=== PATIENT | male | born 1950 | race Caucasian/White ===

== ENCOUNTER → 2016-12-09 | Outpatient (REF) | payer BC ==
[2016-12-09 18:32] LABS: MEAN CORPUSCULAR HEMOGLOBIN 29.8 pg (27.0-33.0); MEAN CORPUSCULAR HGB CONC 33.5 g/dl (32.0-36.5); MEAN CORPUSCULAR VOLUME 88.7 fl (80.0-96.0); RED CELL DISTRIBUTION WIDTH 13.2 % (11.5-14.5); WHITE BLOOD COUNT 8.2 K/mm3 (4.0-10.0)
[2016-12-09 20:15] LABS: ALBUMIN 3.6 GM/DL (3.2-5.2); ALKALINE PHOSPHATASE 72 U/L (45-117); ALT/SGPT 26 U/L (12-78); ANION GAP 7 MEQ/L (8-16); AST/SGOT 16 U/L (15-37); BILIRUBIN,TOTAL 0.4 MG/DL (0.2-1.0); BLOOD UREA NITROGEN 17 MG/DL (7-18); CALCIUM LEVEL 8.4 MG/DL (8.8-10.2); CARBON DIOXIDE LEVEL 28 MEQ/L (21-32); CHLORIDE LEVEL 105 MEQ/L (98-107); CREATININE FOR GFR 1.13 MG/DL (0.70-1.30); GLOMERULAR FILTRATION RATE > 60.0 (>49); GLUCOSE, FASTING 84 MG/DL (80-110); POTASSIUM SERUM 4.4 MEQ/L (3.5-5.1); SODIUM LEVEL 140 MEQ/L (136-145); TOTAL PROTEIN 7.6 GM/DL (6.4-8.2); URIC ACID 5.6 MG/DL (3.5-7.2)
== END ==
LOC: M SFHCCLAY 11:29
PROVIDERS: ATTEND Nurse Practitioner Family
DX: M79.675 Pain in left toe(s) (principal)

== ENCOUNTER 2017-02-06 16:04 | Emergency (ER) | payer BC ==
[2017-02-06] MEDS ORDERED: NS 1,000 ML IV SCH (16:08)
[2017-02-06] MEDS ORDERED: LISI-538 (16:13)
[2017-02-06] MEDS ORDERED: ASPI81TA85 PO (16:14)
[2017-02-06] MEDS ORDERED: TENECTEPLASE 50 MG KIT (TNKase)(J3101) IV ONE (16:15)
[2017-02-06] MEDS ORDERED: NITROGLYCERIN 2% OINT 1 GM *U/D* PKT TOP ONE (16:15)
[2017-02-06] MEDS ORDERED: HEPARIN DRIP 25,000 UNITS in APPROPRIATE DILUENT 1 EA IV SCH (16:15)
[2017-02-06] MEDS ORDERED: MORPHINE 2 MG/ML 1ML SYRINGE IV PRN (16:15)
[2017-02-06] MEDS ORDERED: CLOPIDOGREL 300 MG TAB (PLAVIX) PO ONE (16:15)
[2017-02-06 16:30] VITALS: BP 120/74
[2017-02-06] MEDS ORDERED: HEPARIN SOD (PORCINE) 5000 UNITS/ML VIAL IV ONE (16:30)
[2017-02-06 16:32] LABS: BASO # 0.1 K/mm3 (0.0-0.2); EOS # 0.2 K/mm3 (0.0-0.50); EOS % 2.2 % (0.0-3.0); LARGE UNSTAINED CELL # 0.3 K/mm3 (0.0-0.4); LARGE UNSTAINED CELL % 2.5 % (0.0-4.0); LYMPH # 3.4 K/mm3 (1.5-4.5); LYMPH % 28.8 % (24.0-44.0); MEAN CORPUSCULAR HEMOGLOBIN 30.2 pg (27.0-33.0); MEAN CORPUSCULAR HGB CONC 34.7 g/dl (32.0-36.5); MEAN CORPUSCULAR VOLUME 87.2 fl (80.0-96.0); MONO # 0.7 K/mm3 (0.0-0.8); MONO % 6.1 % (0.0-5.0); NEUTROPHILS # 6.4 K/mm3 (1.8-7.7); NEUTROPHILS % 59.4 % (36.0-66.0); PLATELET COUNT, AUTOMATED 239 k/mm3 (150-450); RED CELL DISTRIBUTION WIDTH 13.8 % (11.5-14.5); WHITE BLOOD COUNT 10.8 K/mm3 (4.0-10.0)
[2017-02-06 16:53] LABS: INR 1.09
[2017-02-06 17:10] LABS: CALCIUM LEVEL 9.7 MG/DL (8.8-10.2); CREATININE FOR GFR 1.54 MG/DL (0.70-1.30); GLOMERULAR FILTRATION RATE 48.2 (>49); POTASSIUM SERUM 4.5 MEQ/L (3.5-5.1)
--- NOTE | 2017-02-06 21:03 | ECGEPIP ---
Stationary ECG Study [facility] - ED Test Date: 2017-02-06 Pat Name: YUE CALDERON Department: Room: - Gender: M Lokie Engineer: thierry : 1950 Requested By: Figueroa Ng Order Number: [id number] Reading MD: Geni Shelton Measurements Intervals [place] Rate: 103 P: PA: 0 QRS: 61 QRSD: 110 T: 86 QT: 331 QTc: 434 Interpretive Statements ATRIAL FIBRILLATION WITH RAPID VENTRICULAR RESPONSE INFERIOR MYOCARDIAL INFARCTION, ACUTE DC ANTEROLATERAL INJURY, ACUTE DC NO PRIOR FOR COMPARISON CLINICAL CORRELATION Electronically Signed On 02-06-2017 21:02:41 EDT by Geni Shelton
--- NOTE | 2017-02-09 07:28 | REP ---
Clinical: Chest pain . Comparison: None . Findings: The mediastinum and cardiac silhouette are stable and within normal limits for portable technique. The lung davis are clear without acute consolidation, effusion, or pneumothorax. Skeletal structures are intact. Impression: No acute cardiopulmonary process appreciated. Signed by Philip Clark MD 02/06/2017 04:22 P
== END 2017-02-06 16:50 | disposition short-term general hospital (02) ==
LOC: EDBD 16:04 → M ED 16:04 → EDSEX 16:04 → M ED 16:50
DX: I21.3 ST elevation (STEMI) myocardial infarction of unspecified site (principal); I10 Essential (primary) hypertension
CPT/HCPCS: 71010; 80048; 82550; 82553; 85025; 85610; 85730; 93005; 93041; 94760; 96374; 96375; 96376; 99285; J3101

== ENCOUNTER → 2017-04-09 | Outpatient (REF) | payer BC ==
[~2017-04-09] MED LIST: ASPI81TA85 PO; LISI-538
== END ==
LOC: M SFHCCLAY 07:40
PROVIDERS: ATTEND Nurse Practitioner Family
DX: E78.5 Hyperlipidemia, unspecified (principal)

== ENCOUNTER → 2017-05-27 | Outpatient (REF) | payer BC | LOC: M SFHCLERA 09:16 | PROVIDERS: ATTEND Dermatology | DX: L82.1 Other seborrheic keratosis (principal) ==

== ENCOUNTER → 2017-08-11 | Outpatient (REF) | payer BC ==
[2017-08-11 12:19] LABS: CHOLESTEROL LEVEL 202 MG/DL (<200); CHOLESTEROL RISK RATIO 4.122 (<5); HDL CHOLESTEROL 49 MG/DL (>40); LDL CHOLESTEROL 108.2 MG/DL (<100); NON-HDL-C 153 MG/DL; TRIGLYCERIDES LEVEL 224 MG/DL (<150)
== END ==
LOC: M SFHCCLAY 09:06
DX: E78.5 Hyperlipidemia, unspecified (principal)

== ENCOUNTER → 2018-05-05 | Outpatient (REF) | payer BC ==
[2018-05-05 12:11] LABS: HEMOGLOBIN 15.8 g/dl (13.5-17.5); MEAN CORPUSCULAR HEMOGLOBIN 29.5 pg (27.0-33.0); MEAN CORPUSCULAR HGB CONC 32.9 g/dl (32.0-36.5); MEAN CORPUSCULAR VOLUME 89.6 fl (80.0-96.0); PLATELET COUNT, AUTOMATED 219 10^3/uL (150-450); RED BLOOD COUNT 5.36 10^6/uL (4.30-6.10); RED CELL DISTRIBUTION WIDTH 13.3 % (11.5-14.5); WHITE BLOOD COUNT 6.8 10^3/uL (4.0-10.0)
[2018-05-05 13:03] LABS: ALBUMIN 3.6 GM/DL (3.2-5.2); ALBUMIN/GLOBULIN RATIO 0.97 (1.00-1.93); ALKALINE PHOSPHATASE 76 U/L (45-117); ALT/SGPT 29 U/L (12-78); ANION GAP 10 MEQ/L (8-16); AST/SGOT 22 U/L (7-37); BILIRUBIN,TOTAL 0.8 MG/DL (0.2-1.0); BLOOD UREA NITROGEN 14 MG/DL (7-18); CALCIUM LEVEL 8.2 MG/DL (8.8-10.2); CARBON DIOXIDE LEVEL 24 MEQ/L (21-32); CHLORIDE LEVEL 106 MEQ/L (98-107); CHOLESTEROL LEVEL 170 MG/DL (<200); CHOLESTEROL RISK RATIO 3.863 (<5); CREATININE FOR GFR 1.16 MG/DL (0.70-1.30); GLOMERULAR FILTRATION RATE > 60.0 (>49); GLUCOSE, FASTING 119 MG/DL (70-100); HDL CHOLESTEROL 44 MG/DL (>40); LDL CHOLESTEROL 79 MG/DL (<100); NON-HDL-C 126 MG/DL; POTASSIUM SERUM 4.8 MEQ/L (3.5-5.1); SODIUM LEVEL 140 MEQ/L (136-145); TOTAL PROTEIN 7.3 GM/DL (6.4-8.2); TRIGLYCERIDES LEVEL 235 MG/DL (<150)
== END ==
LOC: M SFHCCLAY 07:17
DX: I10 Essential (primary) hypertension (principal); E78.5 Hyperlipidemia, unspecified
CPT/HCPCS: 80053

== ENCOUNTER → 2018-07-14 | Outpatient (REF) | payer BC ==
[2018-07-14 12:01] LABS: ALBUMIN 3.6 GM/DL (3.2-5.2); ANION GAP 6 MEQ/L (8-16); BLOOD UREA NITROGEN 14 MG/DL (7-18); CALCIUM LEVEL 8.7 MG/DL (8.8-10.2); CARBON DIOXIDE LEVEL 29 MEQ/L (21-32); CHLORIDE LEVEL 103 MEQ/L (98-107); CREATININE FOR GFR 1.18 MG/DL (0.70-1.30); GLOMERULAR FILTRATION RATE > 60.0 (>49); GLUCOSE, FASTING 111 MG/DL (70-100); PHOSPHORUS LEVEL 1.5 MG/DL (2.5-4.9); POTASSIUM SERUM 4.6 MEQ/L (3.5-5.1); SODIUM LEVEL 138 MEQ/L (136-145)
== END ==
LOC: M LABDRAWC 11:22
DX: I10 Essential (primary) hypertension (principal)
CPT/HCPCS: 80069

== ENCOUNTER → 2018-08-11 | Outpatient (REF) | payer BC ==
[2018-08-11 12:06] LABS: CALCIUM LEVEL 9.1 MG/DL (8.8-10.2); CHOLESTEROL RISK RATIO 3.936 (<5)
[2018-08-11 12:21] LABS: HEMOGLOBIN A1c 5.8 %
== END ==
LOC: M SFHCCLAY 08:21
PROVIDERS: ATTEND Nurse Practitioner Family
DX: R73.9 Hyperglycemia, unspecified (principal); I10 Essential (primary) hypertension; E78.5 Hyperlipidemia, unspecified

== ENCOUNTER → 2018-12-30 | Outpatient (REF) | payer BC ==
[2018-12-30 12:02] LABS: CHOLESTEROL RISK RATIO 3.931 (<5)
== END ==
LOC: M SFHCCLAY 07:44
PROVIDERS: ATTEND Nurse Practitioner Family
DX: E78.5 Hyperlipidemia, unspecified (principal)

== ENCOUNTER → 2019-06-24 | Outpatient (REF) | payer BC ==
[2019-06-24 12:11] LABS: HEMATOCRIT 47.2 % (42.0-52.0); MEAN CORPUSCULAR HGB CONC 31.8 g/dl (32.0-36.5); MEAN CORPUSCULAR VOLUME 91.1 fl (80.0-96.0); PLATELET COUNT, AUTOMATED 227 10^3/uL (150-450); RED BLOOD COUNT 5.18 10^6/uL (4.30-6.10); WHITE BLOOD COUNT 6.8 10^3/uL (4.0-10.0)
[2019-06-24 12:19] LABS: ALBUMIN 3.6 GM/DL (3.2-5.2); ALT/SGPT 26 U/L (12-78); BILIRUBIN,TOTAL 0.9 MG/DL (0.2-1.0); BLOOD UREA NITROGEN 18 MG/DL (7-18); CALCIUM LEVEL 9.2 MG/DL (8.8-10.2); CARBON DIOXIDE LEVEL 31 MEQ/L (21-32); CHLORIDE LEVEL 104 MEQ/L (98-107); CHOLESTEROL LEVEL 157 MG/DL (<200); CHOLESTEROL RISK RATIO 3.651 (<5); CREATININE FOR GFR 1.15 MG/DL (0.70-1.30); GLOMERULAR FILTRATION RATE > 60.0 (>42); GLUCOSE, FASTING 113 MG/DL (70-100); HDL CHOLESTEROL 43 MG/DL (>40); LDL CHOLESTEROL 81 MG/DL (<100); NON-HDL-C 114 MG/DL; POTASSIUM SERUM 4.9 MEQ/L (3.5-5.1); SODIUM LEVEL 138 MEQ/L (136-145); TOTAL PROTEIN 7.2 GM/DL (6.4-8.2); TRIGLYCERIDES LEVEL 167 MG/DL (<150)
== END ==
LOC: M SFHCCLAY 08:29
PROVIDERS: ATTEND Nurse Practitioner Family
DX: I10 Essential (primary) hypertension (principal); E78.5 Hyperlipidemia, unspecified

== ENCOUNTER → 2020-03-01 | Outpatient (REF) | payer BC ==
[~2020-03-01] MED LIST changes: -ASPI81TA85 PO; +ASPI81TA86 PO
[2020-04-08 07:49] LABS: CHOLESTEROL RISK RATIO 4.204 (<5); HEMOGLOBIN A1c 6.1 %; TOTAL 25(OH) VITAMIN D 37.8 NG/ML (30.0-100.0)
== END ==
LOC: M SFHCCLAY 09:23
PROVIDERS: ATTEND Nurse Practitioner Family
DX: E78.5 Hyperlipidemia, unspecified (principal); Z13.21 Encounter for screening for nutritional disorder

== ENCOUNTER 2020-08-23 12:16 | Emergency (ER) | payer BC, MEDICARE ==
[~2020-08-23] VITALS: Ht 182.9 cm; Wt 104.5 kg
[~2020-08-23 12:16] MED LIST changes: -LISI-538; +LISI20TA33
--- OUTSIDE RECORDS SUMMARY | 2020-08-23 12:25 | CCD ---
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 AUTM [phone] Problems Active Problems Provider Date Paroxysmal atrial fibrillation Fabiano Newby MD Onset: Electrocardiogram abnormal Fabiano Newby MD Onset: 2016 Old myocardial infarction Fabiano Newby MD Onset: 017 Patient post percutaneous transluminal coronary angioplasty Fabiano Newby MD Onset: 03/13/2017 Essential hypertension Fabiano Newby MD Onset: 03/13/2017 Single coronary vessel disease Fabiano Newby MD Onset: Pure hypercholesterolemia Fabiano Newby MD Onset: 017 Disturbance in sleep behavior Fabiano Newby MD Onset: 10/2016 Body mass index 30+ - obesity Fabiano Newby MD Onset: Dietary management surveillance FRANCISCO Dixon Onset: 05/31/2018 Obesity FRANCISCO Dixon Onset: 06/16/2019 Social History Type Date Description Comments Sex Unknown ETOH Use Consumes 2 beers per day Tobacco Use Start: Unknown Patient has never smoked Smoking Status Reviewed: 06/16/19 Patient has never smoked Exercise Type/Frequency Walks sporadically Exercise Type/Frequency Does housework twice a w wiyot Exercise Limitations None Allergies, Adverse Reactions, Alerts Description No Known Drug Allergies Medications Active Medications SIG Qnty Indications Ordering Provide r Date Lisinopril 5mg Tablets Take One Tablet By Mouth Every Day 90tabs Juventino Lemons MD 06/08/2018 Atorvastatin Calcium 80mg Tablets Take One Tablet By Mouth AT Bedtime 90tabs Fabiano Newby MD Preservision Areds Capsules 1 by mouth twice a day Unknown 03/12/2017 Aspirin Adult Low Dose 81mg Tablet s DR 1 by mouth every day 90tabs Fabiano Newby MD 03/12/2017 Metoprolol Tartrate 25mg Tablets Take One Tablet By Mouth Twice A Day 180tabs Juventino Lemons MD 03/12/2017 Nitroglycerin 0.4mg Tablets Sub 1 tab sl every 5 min times 3 doses as needed chest disc 30tabs Tesha Newby MD 03/03/2017 Immunizations Description No Information Available Vital Signs Date Vital Result Comment 06/16/2019 11:36am Weight 235.00 lb Height 72 inches 6'0" BMI (Body Mass Index) 31.9 kg/m2 Heart Rate 80 /min BP Systolic Sitting 112 mmHg large cuff, Ra BP Diastolic Sitting 78 mmHg large cuff, Ra 05/31/2018 1:06pm Weight 239.00 lb Height 72 inches 6'0" BMI (Body Mass Index) 32.4 kg/m2 BP Systolic Sitting 136 mmHg large adult cuff/Ra BP Diastolic Sitting 68 mmHg large adult cuff/Ra Results Test Acquired Date Facility Test Result H/L Range Note Lipid Profile/Cardiac Risk Pro 03/01/2020 [facility] - not interfaced (315)- - Triglycerides 201 High <150 Cholesterol 185 <200 HDL 44 >40.0 LDL Cholesterol 101 Chol/HDL Ratio 4.204 <5 Hemoglobin A1c 03/01/2020 [facility] - not interfaced (315)- - Hemoglobin A1c 6.1 Procedures Description No Information Available Medical Devices Description No Information Available Encounters Description No Information Available Assessments Description No Information Available Plan of Treatment Future Appointment(s):* 06/15/2020 10:15 am - FRANCISCO Dixon at Main Office 06/16/2019 - FRANCISCO Dixon* I25.10 Atherosclerotic heart disease of [place] coronary artery with* Recommendations:* Please call the office with any exertional chest pain or shortness of breath. * I48.0 Paroxysmal atrial fibrillation* Recommendations:* Please call the office if you have any sustained episodes of tachycardia (heart rate above 110 bpm at rest) or palpitations. * I10 Essential (primary) hypertension* Recommendations:* No medication changes were made today. * R94.31 Abnormal electrocardiogram [ECG] [EKG]* Recommendations:* No significant change. No further workup required. * E66.8 Other obesity * Z71.3 Dietary counseling and surveillance* Recommendations:* Recommend adopting a more whole foods, plant-based diet in addition to moderate exercise a minimum of 30 minutes 6 days a week. In order to optimize cardiovascular health please be conscious of processed foods, alcohol (no more than two dr inks a day for men and one drink a day for women), salt (<2000 mg/d), oils, saturated fat/animal products, and highly refined carbohydrates such as breads, pastas, and sweets. * All * Follow up:* Follow up in 12 months. Functional Status Functional Condition Comment Date Status Independent with all ADL's Activ e Mental Status Description No Information Available Referrals Description No Information Available
--- OUTSIDE RECORDS SUMMARY | 2020-08-23 12:25 | CCD ---
Author Author [facility] Organization [facility] Address Unknown Phone Unavailable Support Name Relationship Address Phone RETIRED Next Of Kin Unknown Unavailable TENNILLE LYNN Next Of Kin [address] [place] [address] IRINAWILFREDOA Next Of Kin [address] [place] [address] YUE CALDERON SR Next Of Kin [address] [place] [address] [phone] WILLIAM AREVALOINDA ECON [address] [place] [address] Unavailable Re-disclosure Warning The records that you are about to access may contain information from federally-assisted alcohol or drug abuse programs. If such information is present, then the following federally mandated warning applies: This information has been disclosed to you from records protected by federal confidentiality rules (42 CFR part 2). The federal rules prohibit you from making any further disclosure of this information unless further disclosure is expressly permitted by the written consent of the person to whom it pertains or as otherwise permitted by 42 CFR part 2. A general authorization for the release of medical or other information is NOT sufficient for this purpose. The Federal rules restrict any use of the information to criminally investigate or prosecute any alcohol or drug abuse patient.The records that you are about to access may contain highly sensitive health information, the redisclosure of which is protected by Article 27-F of the [facility] Public Health law. If you continue you may have access to information: Regarding HIV / AIDS; Provided by facilities licensed or operated by the [facility] Office of Mental Health; or Provided by the [facility] Office for People With Developmental Disabilities. If such information is present, then the following [facility] mandated warning applies: This information has been disclosed to you from confidential records which are protected by state law. State law prohibits you from making any further disclosure of this information without the specific written consent of the person to whom it pertains, or as otherwise permitted by law. Any unauthorized further disclosure in violation of state law may result in a fine or fci sentence or both. A general authorization for the release of medical or other information is NOT sufficient authorization for further disc losure. Family History Family Member Name Family Member Gender Family Member Status Date o f Status Description Data Source(s) Unknown Male Problem [facility] ([facility]) Encounters Encounter Providers Location Date Indications Data Source(s ) Outpatient [id number] [facility] [id number] 05/16/2020 12:00:00 AM EDT eCW1 ([facility]) Unknown [address] [place] [id number] 05/10/2020 12:00:00 AM EDT eCW1 ([facility]) [address] [address] 02/21/2020 12:00:00 AM EDT eCW1 ([facility]) [address] [phone] 08/10/2019 12:00:00 AM EST eCW1 ([facility]) [address] [address] 07/08/2019 12:00:00 AM EST eCW1 ([facility]) Immunizations Vaccine Date Status Description Data Source(s) pneumococcal polysaccharide PPV23 05/16/2020 03:19:00 PM EDT comple rosita eCW1 ([facility]) influenza, recombinant, quadrIvalent,injectable, prese rvative free 05/16/2020 03:17:00 PM EDT completed eCW1 ([facility]) Medications Medication Brand Name Start Date Product Form Dose Route Admi nistrative Instructions Pharmacy Instructions Status Indications Reaction Description Data Source(s) 5 mg 05/21/2020 12:00:00 AM EDT tablet 90 TAKE ONE TABLET BY MOUTH EVERY DAY TAKE ONE TABLET BY MOUTH EVERY DAY SOLD: 05/23/2020 [facility] 80 mg 05/21/2020 12:00:00 AM EDT tablet 90 TAKE ONE TABLET BY MOUTH AT BEDTIME TAKE ONE TABLET BY MOUTH AT BEDTIME SOLD: 08/20/2020 [facility] 80 mg 05/21/2020 12:00:00 AM EDT tablet 90 TAKE ONE TABLET BY MOUTH AT BEDTIME TAKE ONE TABLET BY MOUTH AT BEDTIME SOLD: 05/23/2020 [facility] 5 mg 05/21/2020 12:00:00 AM EDT tablet 90 TAKE ONE TABLET BY MOUTH EVERY DAY TAKE ONE TABLET BY MOUTH EVERY DAY SOLD: 08/20/2020 [facility] 25 mg 02/20/2020 12:00:00 AM EDT tablet 180 TAKE ONE TABLET BY MOUTH TWICE A DAY TAKE ONE TABLET BY MOUTH TWICE A DAY SOLD: 02/23/2020 [facility] 25 mg 02/20/2020 12:00:00 AM EDT tablet 180 TAKE ONE TABLET BY MOUTH TWICE A DAY TAKE ONE TABLET BY MOUTH TWICE A DAY SOLD: 05/23/2020 [facility] 25 mg 02/20/2020 12:00:00 AM EDT tablet 180 TAKE ONE TABLET BY MOUTH TWICE A DAY TAKE ONE TABLET BY MOUTH TWICE A DAY SOLD: 08/20/2020 [facility] 81 mg 01/03/2020 12:00:00 AM EDT tablet,delayed release (DR/EC) 30 TAKE ONE TABLET BY MOUTH EVERY DAY TAKE ONE TABLET BY MOUTH EVERY DAY SOLD: 03/16/2020 [facility] 81 mg 01/03/2020 12:00:00 AM EDT tablet,delayed release (DR/EC) 30 TAKE ONE TABLET BY MOUTH EVERY DAY TAKE ONE TABLET BY MOUTH EVERY DAY SOLD: 07/16/2020 [facility] 81 mg 01/03/2020 12:00:00 AM EDT tablet,delayed release (DR/EC) 30 TAKE ONE TABLET BY MOUTH EVERY DAY TAKE ONE TABLET BY MOUTH EVERY DAY SOLD: 08/14/2020 [facility] 81 mg 01/03/2020 12:00:00 AM EDT tablet,delayed release (DR/EC) 30 TAKE ONE TABLET BY MOUTH EVERY DAY TAKE ONE TABLET BY MOUTH EVERY DAY SOLD: 06/14/2020 [facility] 81 mg 01/03/2020 12:00:00 AM EDT tablet,delayed release (DR/EC) 30 TAKE ONE TABLET BY MOUTH EVERY DAY TAKE ONE TABLET BY MOUTH EVERY DAY SOLD: 04/16/2020 [facility] 81 mg 01/03/2020 12:00:00 AM EDT tablet,delayed release (DR/EC) 30 TAKE ONE TABLET BY MOUTH EVERY DAY TAKE ONE TABLET BY MOUTH EVERY DAY SOLD: 02/07/2020 [facility] 81 mg 01/03/2020 12:00:00 AM EDT tablet,delayed release (DR/EC) 30 TAKE ONE TABLET BY MOUTH EVERY DAY TAKE ONE TABLET BY MOUTH EVERY DAY SOLD: 05/16/2020 [facility] 81 mg 01/03/2020 12:00:00 AM EDT tablet,delayed release (DR/EC) 30 TAKE ONE TABLET BY MOUTH EVERY DAY TAKE ONE TABLET BY MOUTH EVERY DAY SOLD: 01/05/2020 [facility] Cephalexin 500 MG Oral Capsule Cephalexin 500 MG 08/10/2019 12:00:00 AM EST active 1 capsule eCW1 ([facility]) Cephalexin 500 MG Oral Capsule Cephalexin 500 MG 08/10/2019 12:00:0 0 AM EST 1.0 {capsule} active Cephalexin 500 MG eCW1 ([facility]) 500 mg 08/10/2019 12:00:00 AM EST capsule 40 TAKE ONE CAPSULE BY MOUTH FOUR TIMES A DAY FOR 10 DAYS TAKE ONE CAPSULE BY MOUTH FOUR TIMES A DAY FOR 10 DAYS SOLD: 08/11/2019 [facility] Mupirocin 0.02 MG/MG Topical Ointment Mupirocin 2 % Mupiroci n 2 % 08/10/2019 12:00:00 AM EST 1.0 {application} active Mupirocin 2 % eCW1 ([facility]) Mupirocin 0.02 MG/MG Topical Ointment Mupirocin 2 % Mupiroci n 2 % 08/10/2019 12:00:00 AM EST 1.0 {application} active Mupirocin 2 % eCW1 ([facility]) 2 % 08/10/2019 12:00:00 AM EST ointment 22 APPLY THREE TIMES A DAY TO LEFT THUMB FOR 10 DAYS APPLY THREE TIMES A DAY TO LEFT THUMB FOR 10 DAYS SOLD : 08/11/2019 [facility] Mupirocin 0.02 MG/MG Topical Ointment Mupirocin 2 % Mupiroci n 2 % 08/10/2019 12:00:00 AM EST active 1 applic ation eCW1 ([facility]) Cephalexin 500 MG Oral Capsule Cephalexin 500 MG 08/10/2019 12:00:0 0 AM EST 1.0 {capsule} active Cephalexin 500 MG eCW1 ([facility]) 80 mg 05/30/2019 12:00:00 AM EDT tablet 90 TAKE ONE TABLET BY MOUTH AT BEDTIME TAKE ONE TABLET BY MOUTH AT BEDTIME SOLD: 08/29/2019 [facility] 80 mg 05/30/2019 12:00:00 AM EDT tablet 90 TAKE ONE TABLET BY MOUTH AT BEDTIME TAKE ONE TABLET BY MOUTH AT BEDTIME SOLD: 02/23/2020 [facility] 80 mg 05/30/2019 12:00:00 AM EDT tablet 90 TAKE ONE TABLET BY MOUTH AT BEDTIME TAKE ONE TABLET BY MOUTH AT BEDTIME SOLD: 11/24/2019 [facility] 5 mg 05/24/2019 12:00:00 AM EDT tablet 90 TAKE ONE TABLET BY MOUTH EVERY DAY TAKE ONE TABLET BY MOUTH EVERY DAY SOLD: 11/24/2019 [facility] 5 mg 05/24/2019 12:00:00 AM EDT tablet 90 TAKE ONE TABLET BY MOUTH EVERY DAY TAKE ONE TABLET BY MOUTH EVERY DAY SOLD: 02/23/2020 [facility] 5 mg 05/24/2019 12:00:00 AM EDT tablet 90 TAKE ONE TABLET BY MOUTH EVERY DAY TAKE ONE TABLET BY MOUTH EVERY DAY SOLD: 08/23/2019 [facility] 25 mg 02/28/2019 12:00:00 AM EDT tablet 180 TAKE ONE TABLET BY MOUTH TWICE A DAY TAKE ONE TABLET BY MOUTH TWICE A DAY SOLD: 08/29/2019 [facility] 25 mg 02/28/2019 12:00:00 AM EDT tablet 180 TAKE ONE TABLET BY MOUTH TWICE A DAY TAKE ONE TABLET BY MOUTH TWICE A DAY SOLD: 11/24/2019 [facility] 81 mg 01/26/2019 12:00:00 AM EDT tablet,delayed release (DR/EC) 30 TAKE ONE TABLET BY MOUTH EVERY DAY TAKE ONE TABLET BY MOUTH EVERY DAY SOLD: 08/12/2019 [facility] 81 mg 01/26/2019 12:00:00 AM EDT tablet,delayed release (DR/EC) 30 TAKE ONE TABLET BY MOUTH EVERY DAY TAKE ONE TABLET BY MOUTH EVERY DAY SOLD: 09/12/2019 [facility] 81 mg 01/26/2019 12:00:00 AM EDT tablet,delayed release (DR/EC) 30 TAKE ONE TABLET BY MOUTH EVERY DAY TAKE ONE TABLET BY MOUTH EVERY DAY SOLD: 11/07/2019 [facility] 81 mg 01/26/2019 12:00:00 AM EDT tablet,delayed release (DR/EC) 30 TAKE ONE TABLET BY MOUTH EVERY DAY TAKE ONE TABLET BY MOUTH EVERY DAY SOLD: 12/08/2019 [facility] 81 mg 01/26/2019 12:00:00 AM EDT tablet,delayed release (DR/EC) 30 TAKE ONE TABLET BY MOUTH EVERY DAY TAKE ONE TABLET BY MOUTH EVERY DAY SOLD: 07/15/2019 [facility] 81 mg 01/26/2019 12:00:00 AM EDT tablet,delayed release (DR/EC) 30 TAKE ONE TABLET BY MOUTH EVERY DAY TAKE ONE TABLET BY MOUTH EVERY DAY SOLD: 10/10/2019 [facility] Insurance Providers Payer name Policy type / Coverage type Policy ID Covered republican ID Covered republican's relationship to michael Policy Michael Plan Information [facility] [employer]OY[employer] PROGRAM [id number] SP [id number] [facility]-Medicare Part B [id number] ANSI-Commercial [id number] ANSI-Commercial [id number] ANS-Medicare Part B [id number] ANSI-Commercial [id number] ANS-Medicare Part B [id number] BCBS Federal Commercial [id number] Self [id number] BCBS Federal Commercial [id number] Self [id number] ANSI-Medicare Part B [id number] ANSI-Commercial [id number] BCBS Federal Commercial [id number] Self [id number] [employer] FEDERAL [id number] SP [id number] BC[employer] Federal Commercial [id number] Self [id number] MEDICARE [id number] Judi [id number] A [employer]BS [id number] Judi [id number] [employer]BS Federal Commercial [id number] Self [id number] [employer]BS Federal Commercial [id number] Self [id number] [employer]BS Federal Commercial [id number] Self [id number] [employer] FEDERAL [id number] SP [id number] [employer] [id number] Judi [id number] Surgeries/Procedures Procedure Description Date Indications Data Source(s) Immunization: Flublok Quadrivalent (18 years & older) 0.5mL IM (Influenza) 05/16/2020 12:00:00 AM EDT eCW1 ([facility]) Results ID Date Data Source [id number] 03/01/2020 01:05:00 PM EDT [facility] ([facility]) Name Value Range Interpretation Code Description Data Alice rce(s) Supporting Document(s) Hemoglobin A1c/Hemoglobin.total in Blood 6.1 [facility] ([facility]) ID Date Data Source [id number] 03/01/2020 01:05:00 PM EDT [facility] Name Value Range Interpretation Code Description Data Alice rce(s) Supporting Document(s) Cholesterol 185 [facility] ([facility]) Triglycerides 201 [facility] ([facility]) HDL 44 [facility] Chol/HDL Ratio 4.204 [facility] ([facility]) Cholesterol in LDL [Mass/volume] in Serum or Plasma by calculation 10 1 [facility] ([facility]) Procedure Social History Code Duration Value Status Description Data Source(s ) Smoking 06/15/2020 12:00:00 AM EST Patient has never smoked co mpleted Patient has never smoked [facility] ([facility]) Smoking 08/10/2019 12:00:00 AM EST Never Smoker completed Never S moker eCW1 ([facility]) Smoking 08/10/2019 12:00:00 AM EST Never Smoker completed Never S moker eCW1 ([facility]) Vital Signs ID Date Data Source UNK Name Value Range Interpretation Code Description Data Source(s) Diastolic blood pressure--sitting 78 mm[Hg] 78 mm[Hg] [facility] ([facility]) large cuff, Ra Systolic blood pressure--sitting 122 mm[Hg] 122 mm[Hg] [facility] ([facility]) large cuff, Ra Heart rate 69 /min 69 /min [facility] ([facility]) Body mass index (BMI) [Ratio] 31.9 kg/m2 31.9 k g/m2 [facility] ([facility]) Body height 72 [in_i] 72 [in_i] [facility] ([facility]) 6'0" Body weight 235.00 [lb_av] 235.00 [lb_av] MEDEN T ([facility]) Diastolic blood pressure 79 mm[Hg] 79 mm[Hg] eCW1 ([facility]) Systolic blood pressure 128 mm[Hg] 128 mm[Hg] e CW1 ([facility]) Body temperature 97.8 [degF] 97.8 [degF] eCW1 ( [facility]) Respiratory rate 20 /min 20 /min eCW1 ([facility]) Heart rate 73 /min 73 /min eCW1 ([facility]) Body mass index (BMI) [Ratio] 31.13 kg/m2 31.13 kg/m2 eCW1 ([facility]) Body height [in_us] eCW1 ([facility]) Body weight Measured 236 [lb_av] 236 [lb_av] eC W1 ([facility]) Patient Treatment Plan of Care Planned Activity Planned Date Details Description Data Source (s) Mupirocin 0.02 MG/MG Topical Ointment 08/10/2019 12:00:00 AM EST eCW1 ([facility]) Cephalexin 500 MG Oral Capsule 08/10/2019 12:00:00 AM EST eCW1 ([facility]) Mupirocin 0.02 MG/MG Topical Ointment 08/10/2019 12:00:00 AM EST eCW1 ([facility]) Cephalexin 500 MG Oral Capsule 08/10/2019 12:00:00 AM EST eCW1 ([facility]) Cephalexin 500 MG Oral Capsule 08/10/2019 12:00:00 AM EST eCW1 ([facility]) Mupirocin 0.02 MG/MG Topical Ointment 08/10/2019 12:00:00 AM EST eCW1 ([facility])
--- OUTSIDE RECORDS SUMMARY | 2020-08-23 12:25 | CCD ---
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 Name Role Phone Hua Bruce Unavailable PROBLEMS Type Condition ICD9-CM Code QGW19-AC Code Onset Dates Condition S tatus SNOMED Code Notes Problem Cough R05 Active 52199680 Problem Acute sinusitis, unspecified J01.90 Active 158 07606 Problem Other and unspecified hyperlipidemia E78.5 Act erica 66980781 Problem Unspecified essential hypertension I10 Activ e [id number] ALLERGIES No Known Allergies ENCOUNTERS from 1950 to 2020-05-24 Encounter Location Date Provider Diagnosis [address] [address] May Hua Bruce Encounter for immunization Z23 IMMUNIZATIONS Vaccine Route Administration Date Status Influenza (18 yrs & older) Flublok IM Intramuscular May 16, 2020 Administered Influenza (18 yrs & older) Flublok Unknown May 07, 2018 Administered Influenza (High Dose 65 & up) IM Intramuscular Aug 20, 2017 A dministered Pneumococcal Adult 0.5mL (Pneumovax 23) IM Intramuscular May 16, 2020 Administered SOCIAL HISTORY Tobacco Use: Social History Observation Description Date Details (start date - stop date) Never Smoker Sex Assigned At : Social History Observation Description Sex Assigned At Unknown Education: Question Answer Notes Level of Education: Finished High School Audit Question Answer Notes Total Score: 0 Interpretation: Alcohol Education Protestant: Question Answer Notes Protestant 08 Jain Sexual Hx: Question Answer Notes Had sex in the last 12 months (vaginal, oral, or anal)? Yes Have you ever had an STD? No Prevention Strategies discussed: Other with Women only Use protection? No Drug and Alcohol Question Answer Notes Total Score: 0 Interpretation: No problems reported Alcohol Screening: Question Answer Notes Did you have a drink containing alcohol in the past year? Ye s Points 6 Interpretation Positive How often did you have six or more drinks on one occas ion in the past year? Monthly (2 points) How many drinks did you have on a typica l day when you were drinking in the past year? 3 or 4 (1 point) How often did you have a drink containing alcohol in t he past year? Two to three times per week (3 points) BMI Care Goal Follow-Up Question Answer Notes Above Normal BMI Follow-Up Dietary management educatio n, guidance, and counseling Tobacco Use: Question Answer Notes Are you a: never smoker REASON FOR REFERRAL No Information VITAL SIGNS No information MEDICATIONS Medication SIG (Take, Route, Frequency, Duration) Start Date En d Date Status Cephalexin 500 MG 1 capsule Orally four times daily for 10 day(s ) Aug, Active Nitroglycerin 0.4 MG Sublingual Active Metoprolol Tartrate 25 MG 1 tablet with food Orally Twice a day Active Centrum Silver Adult 50+ - Orally A ctive PreserVision AREDS - Orally bid Active Aspirin 81 MG 1 tablet Orally Once a day for 90 Active Atorvastatin Calcium 80 MG 1 tablet Orally Once a day Active Mupirocin 2 % 1 application LEFT THUMB Three times a d ay for 10 day(s) Aug, Active Ibuprofen 800 MG 1 tablet with food or milk Orally Three times a day December, Active Lisinopril 5 MG 1 tablet Orally Once a day Active PROCEDURES Procedure Date Ordered Result Body Site Immunization: Flublok Quadrivalent (18 years & older) 0.5mL IM (Influenza) 2020-05-16 N/A RESULTS No Results REASON FOR VISIT flu inj and pneumonia MEDICAL (GENERAL) HISTORY Type Description Date Medical History Elevated blood pressure Medical History Hyperlipidemia Surgical History hydrocele repair Surgical History cardiac stent-Ptca/stenting RCA 02/07/17 Hospitalization History [place] [facility] 02/06/17 Goals Section No Information Health Concerns No Information MEDICAL EQUIPMENT No Information MENTAL STATUS No Information FUNCTIONAL STATUS No Information ASSESSMENTS Encounter Date Diagnosis Notes May, Encounter for immunization (ICD-10 - Z23 ) PLAN OF TREATMENT Medication Medication Name Sig Start Date Stop Date Cephalexin 500 MG 1 capsule Orally four times daily for 10 day(s ) Aug, Mupirocin 2 % 1 application LEFT THUMB Three times a d ay for 10 day(s) Aug, Ibuprofen 800 MG 1 tablet with food or milk Orally Three times a day December, Atorvastatin Calcium 80 MG 1 tablet Orally Once a day Metoprolol Tartrate 25 MG 1 tablet with food Orally Twice a day Nitroglycerin 0.4 MG Sublingual Centrum Silver Adult 50+ - Orally PreserVision AREDS - Orally bid Aspirin 81 MG 1 tablet Orally Once a day for 90 Lisinopril 5 MG 1 tablet Orally Once a day Treatment Notes Test Name Order Date Immunization: Pneumovax 23 0.5mL IM (Pneumococcal) 202 Next Appt Details as needed Reason: Insurance Providers Payer Name Payer Address Payer Phone Insured Name Patient Relati onship to Insured Coverage Start Date Coverage End Date [place] [address] [address] [facility] [address] YUE CALDERON
--- OUTSIDE RECORDS SUMMARY | 2020-08-23 12:25 | CCD | Continuity of Care Document ---
Author Author Keith SZYMANSKI Organization Unknown Address [address] [place] [address] [place] [address] Phone [phone] Care Team Providers Care Radiological Equipment Specialist Name Role Phone Fco Ernandez MD AUTM [phone] Artemio Ruelas M.D. AUTM [phone] Problems Active Problems Provider Date Paroxysmal atrial fibrillation Fabiano Newby MD Onset: Electrocardiogram abnormal Fabiano Newby MD Onset: 2016 Old myocardial infarction Fabiano Newby MD Onset: 017 Patient post percutaneous transluminal coronary angioplasty Faibano Newby MD Onset: 03/13/2017 Essential hypertension Fabiano Newby MD Onset: 03/13/2017 Single coronary vessel disease Fabiano eNwby MD Onset: Pure hypercholesterolemia Fabiano Newby MD [...] Patient has never smoked Smoking Status Reviewed: 06/15/20 Patient has never smoked Exercise Type/Frequency Walks sporadically Exercise Type/Frequency Does housework twice a w [place] Exercise Type/Frequency Does yardwork sporadical ly snow removal if needed Exercise Limitations None Allergies, Adverse Reactions, Alerts [...] 3 doses as needed chest disc 30tabs J manjinder Newby MD 03/03/2017 Immunizations Description No Information Available Vital Signs Date Vital Result Comment 06/15/2020 10:51am Weight 235.00 lb Home Weight 234lb Height 72 inches 6'0" BMI (Body Mass Index) 31.9 kg/m2 Heart Rate 69 /min BP Systolic Sitting 122 mmHg large cuff, Ra BP Diastolic Sitting 78 mmHg large cuff, Ra 06/16/2019 11:36am Weight 235.00 lb Height 72 inches 6'0" BMI (Body Mass Index) 31.9 kg/m2 Heart Rate 80 /min BP Systolic Sitting 112 mmHg large cuff, Ra BP Diastolic Sitting 78 mmHg large cuff, Ra Results Test Acquired Date Facility Test Result H/L Range Note Lipid Profile/Cardiac Risk Pro 03/01/2020 [facility] - not interfaced (315)- - Triglycerides 201 High <150 Cholesterol 185 <200 HDL 44 >40.0 LDL Cholesterol 101 Chol/HDL Ratio 4.204 <5 Hemoglobin A1c 03/01/2020 [facility] - not interfaced (315)- - Hemoglobin A1c 6.1 Procedures Description No Information Available Medical Devices Description No Information Available Encounters Description No Information Available Assessments Date Code Description Provider 06/15/2020 I25.10 Atherosclerotic heart disease of [place] coronary artery with FRANCISCO Dixon 06/15/2020 I48.0 Paroxysmal atrial fibrillation A FRANCISCO Hansen 06/15/2020 I10 Essential (primary) hypertension FRANCISCO Dixon 06/15/2020 R94.31 Abnormal electrocardiogram [ECG] [EKG] FRANCISCO Dixon 06/15/2020 E66.8 Other obesity FRANCISCO Dixon 06/15/2020 Z71.3 Dietary counseling and surveilla [facility] FRANCISCO Dixon Plan of Treatment Future Appointment(s):* 06/17/2021 2:30 pm - FRANCISCO Franco at Main Office 06/15/2020 - FRANCISCO Dixon* I25.10 Atherosclerotic heart disease of [place] coronary artery with* Recommendations:* Please call the [...]
[2020-08-23] MEDS ORDERED: LISI-898 PO (12:33)
[2020-08-23] MEDS ORDERED: NITR0.4S14 SL (12:33)
[2020-08-23] MEDS ORDERED: METO1TAB87 PO (12:33)
[2020-08-23] MEDS ORDERED: ATOR80TA59 PO (12:33)
--- NOTE | 2020-08-23 13:08 | REP ---
INDICATION: CHEST PAIN. COMPARISON: 02/06/2017. TECHNIQUE: SINGLE PORTABLE AP VIEW OF THE CHEST WAS PERFORMED. FINDINGS: THERE IS NO ACUTE INFILTRATE OR PULMONARY EDEMA. LUNGS ARE CLEAR. HEART IS NOT SIGNIFICANTLY ENLARGED. MEDIASTINAL SILHOUETTE IS UNREMARKABLE. THE VISUALIZED OSSEOUS STRUCTURES ARE INTACT. IMPRESSION: NO ACUTE PULMONARY DISEASE. <Electronically signed by Sergo Leigh > 08/23/20 1678
[2020-08-23 13:32] LABS: BASO # 0.1 10^3/uL (0.0-0.2); BASO % 0.7 % (0.0-1.0); EOS # 0.2 10^3/uL (0.0-0.5); EOS % 2.7 % (0.0-3.0); HEMATOCRIT 49.8 % (42.0-52.0); LYMPH # 1.5 10^3/uL (1.5-5.0); LYMPH % 20.4 % (24.0-44.0); MEAN CORPUSCULAR HEMOGLOBIN 29.1 pg (27.0-33.0); MEAN CORPUSCULAR HGB CONC 32.1 g/dl (32.0-36.5); MEAN CORPUSCULAR VOLUME 90.7 fl (80.0-96.0); MONO # 0.7 10^3/uL (0.0-0.8); MONO % 9.6 % (0.0-5.0); NEUTROPHILS # 4.9 10^3/uL (1.5-8.5); NEUTROPHILS % 66.3 % (36.0-66.0); PLATELET COUNT, AUTOMATED 209 10^3/uL (150-450); RED BLOOD COUNT 5.49 10^6/uL (4.30-6.10); WHITE BLOOD COUNT 7.4 10^3/uL (4.0-10.0)
[2020-08-23] MEDS ORDERED: ASPIRIN 81 MG CHEW TABLET PO ONE ×2 (13:45)
[2020-08-23 14:01] LABS: BLOOD UREA NITROGEN 19 MG/DL (7-18); CALCIUM LEVEL 9.7 MG/DL (8.8-10.2); CARBON DIOXIDE LEVEL 27 MEQ/L (21-32); CHLORIDE LEVEL 105 MEQ/L (98-107); CREATININE FOR GFR 1.22 MG/DL (0.70-1.30); GLOMERULAR FILTRATION RATE > 60.0 (>42); GLUCOSE, FASTING 93 MG/DL (70-100); POTASSIUM SERUM 5.1 MEQ/L (3.5-5.1); SODIUM LEVEL 138 MEQ/L (136-145)
--- NOTE | 2020-08-23 14:20 | ECGEPIP ---
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
--- OUTSIDE RECORDS SUMMARY | 2020-08-23 15:12 | CCD ---
Author Author [facility] Organization [facility] Address Unknown Phone Unavailable Support Name Relationship Address Phone RETIRED Next Of Kin Unknown Unavailable TENNILLE LYNN Next Of Kin [address] [place] [address] IRINAWILFREDOA Next Of Kin [address] [place] [address] YUE CALDERON SR Next Of Kin [address] [place] [phone] AREVALOWILLIAMWILDER ECON [address] [place] [address] Unavailable Re-disclosure Warning The records that you [...] is protected by Article 27-F of the [facility] Public Health law. If you continue you may have access to information: Regarding HIV / AIDS; Provided by facilities licensed or operated by the [facility] Office of Mental Health; or Provided by the [facility] Office for People With Developmental Disabilities. If such information is present, then the following [facility] mandated warning applies: This information has [...] law may result in a fine or senior care sentence or both. A general authorization for the release of medical or other information is NOT sufficient authorization for further disc losure. Family History Family Member Name Family Member Gender Family Member Status Date o f Status Description Data Source(s) Unknown Male Problem [facility] ([facility]) Encounters Encounter Providers Location Date Indications Data Source(s ) Outpatient [address] [place] [phone] 05/16/2020 12:00:00 AM EDT eCW1 ([facility]) Unknown [address] [place] [phone] 05/10/2020 12:00:00 AM EDT eCW1 ([facility]) [address] [address] 02/21/2020 12:00:00 AM EDT eCW1 ([facility]) [address] [address] 08/10/2019 12:00:00 AM EST eCW1 ([facility]) [address] [address] 07/08/2019 12:00:00 AM EST eCW1 ([facility]) Immunizations Vaccine Date Status Description Data Source(s) pneumococcal polysaccharide PPV23 05/16/2020 03:19:00 PM EDT comple rosita eCW1 ([facility]) influenza, recombinant, quadrIvalent,injectable, prese rvative free 05/16/2020 03:17:00 PM EDT completed eCW1 ([facility]) Medications Medication Brand Name Start Date Product [...] 12:00:00 AM EST active 1 capsule eCW1 ([facility]) Cephalexin 500 MG Oral Capsule Cephalexin 500 MG 08/10/2019 12:00:0 0 AM EST 1.0 {capsule} active Cephalexin 500 MG eCW1 ([facility]) 500 mg 08/10/2019 12:00:00 AM EST capsule 40 TAKE ONE CAPSULE BY MOUTH FOUR TIMES A DAY FOR 10 DAYS TAKE ONE CAPSULE BY MOUTH FOUR TIMES A DAY FOR 10 DAYS SOLD: 08/11/2019 [facility] Mupirocin 0.02 MG/MG Topical Ointment Mupirocin 2 % Mupiroci n 2 % 08/10/2019 12:00:00 AM EST 1.0 {application} active Mupirocin 2 % eCW1 ([facility]) Mupirocin 0.02 MG/MG Topical Ointment Mupirocin 2 % Mupiroci n 2 % 08/10/2019 12:00:00 AM EST 1.0 {application} active Mupirocin 2 % eCW1 ([facility]) 2 % 08/10/2019 12:00:00 AM EST ointment 22 APPLY THREE TIMES A DAY TO LEFT THUMB FOR 10 DAYS APPLY THREE TIMES A DAY TO LEFT THUMB FOR 10 DAYS SOLD : 08/11/2019 [facility] Mupirocin 0.02 MG/MG Topical Ointment Mupirocin 2 % Mupiroci n 2 % 08/10/2019 12:00:00 AM EST active 1 applic ation eCW1 ([facility]) Cephalexin 500 MG Oral Capsule Cephalexin 500 MG 08/10/2019 12:00:0 0 AM EST 1.0 {capsule} active Cephalexin 500 MG eCW1 ([facility]) 80 mg 05/30/2019 12:00:00 AM EDT [...] type / Coverage type Policy ID Covered green party ID Covered green party's relationship to michael Policy Michael Plan Information [facility] [employer] [id number] MEDICARE [id number] [facility] [employer] [employer] [id number] [facility]-Medicare Part B [id number] ANS-Commercial [id number] ANS-Commercial [id number] [facility]-Medicare Part B [id number] ANSI-Commercial [id number] ANS-Medicare Part B [id number] [employer] Federal Commercial [id number] Self [id number] BCBS Federal Commercial [id number] Self [id number] ANSI-Medicare Part B [id number] ANSI-Commercial [id number] Federal Commercial [id number] Self [id number] EXCELLUS BCBS FEDERAL [id number] SP [id number] BC[employer] Federal Commercial [id number] Self [id number] MEDICARE [id number] Judi [id number] A EXCELLUS BCBS [id number] Judi [id number] BCBS Federal Commercial [id number] Self [id number] BCBS Federal Commercial [id number] Self [id number] BCBS Federal Commercial [id number] Self [id number] EXCELLUS BCBS FEDERAL [id number] SP [id number] EXCELLUS BCBS [id number] Judi [id number] Surgeries/Procedures Procedure Description Date Indications Data Source(s) Immunization: Flublok Quadrivalent (18 years & older) 0.5mL IM (Influenza) 05/16/2020 12:00:00 AM EDT eCW1 ([facility]) Results ID Date Data Source [id number] 03/01/2020 01:05:00 PM EDT [facility] ([facility] Name Value Range Interpretation Code Description Data Alice rce(s) Supporting Document(s) Hemoglobin A1c/Hemoglobin.total in Blood 6.1 [facility] ([facility]) ID Date Data Source [id number] 03/01/2020 01:05:00 PM EDT [facility] ([facility] Name Value Range Interpretation Code Description Data Alice rce(s) Supporting Document(s) Cholesterol 185 [facility] ([facility]) Triglycerides 201 [facility] ([facility]) HDL 44 [facility] Chol/HDL Ratio 4.204 [facility] ([facility]) Cholesterol in LDL [Mass/volume] in Serum or Plasma by calculation 10 1 [facility] ([facility]) Procedure Social History Code Duration Value Status Description Data Source(s ) Smoking 06/15/2020 12:00:00 AM EST Patient has never smoked co mpleted Patient has never smoked [facility] ([facility]) Smoking 08/10/2019 12:00:00 AM EST Never Smoker completed Never S moker eCW1 ([facility]) Smoking 08/10/2019 12:00:00 AM EST Never Smoker completed Never S moker eCW1 ([facility]) Vital Signs ID Date Data Source UNK Name Value Range Interpretation Code Description Data Source(s) Diastolic blood pressure--sitting 78 mm[Hg] 78 mm[Hg] [facility] ([facility]) large cuff, Ra Systolic blood pressure--sitting 122 mm[Hg] 122 mm[Hg] [facility] ([facility]) large cuff, Ra Heart rate 69 /min 69 /min [facility] ([facility] Body mass index (BMI) [Ratio] 31.9 kg/m2 31.9 k g/m2 [facility] ([facility]) Body height 72 [in_i] 72 [in_i] [facility] 6'0" Body weight 235.00 [lb_av] 235.00 [lb_av] MEDEN T ([facility]) Diastolic blood pressure 79 mm[Hg] 79 mm[Hg] eCW1 ([facility]) Systolic blood pressure 128 mm[Hg] 128 mm[Hg] e CW1 ([facility]) Body temperature 97.8 [degF] 97.8 [degF] eCW1 ( [facility]) Respiratory rate 20 /min 20 /min eCW1 ([facility]) Heart rate 73 /min 73 /min eCW1 ([facility]) Body mass index (BMI) [Ratio] 31.13 kg/m2 31.13 kg/m2 eCW1 ([facility]) Body height [in_us] eCW1 ([facility]) Body weight Measured 236 [lb_av] 236 [lb_av] eC W1 ([facility]) Patient Treatment Plan of Care Planned Activity Planned Date Details Description Data Source (s) Mupirocin 0.02 MG/MG Topical Ointment 08/10/2019 12:00:00 AM EST eCW1 ([facility]) Cephalexin 500 MG Oral Capsule 08/10/2019 12:00:00 AM EST eCW1 ([facility]) Mupirocin 0.02 MG/MG Topical Ointment 08/10/2019 12:00:00 AM EST eCW1 ([facility]) Cephalexin 500 MG Oral Capsule 08/10/2019 12:00:00 AM EST eCW1 ([facility]) Cephalexin 500 MG Oral Capsule 08/10/2019 12:00:00 AM EST eCW1 ([facility]) Mupirocin 0.02 MG/MG Topical Ointment 08/10/2019 12:00:00 AM EST eCW1 ([facility])
--- NOTE | 2020-08-23 18:32 | ECGEPIP ---
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
[2020-08-23 20:30] VITALS: BP 137/74
--- NOTE | 2020-08-24 20:50 | ECGEPIP ---
[facility] - ED Test Date: 2020-08-23 Pat Name: YUE CALDERON Department: Room: - Gender: Male Classer: BEBA : 1950 Requested By: Figueroa Ng Order Number: [id number] Reading MD: Geni Shelton Measurements Intervals [place] Rate: 86 P: 38 [place]: 199 QRS: 23 QRSD: 98 T: 41 QT: 341 QTc: 409 Interpretive Statements SINUS RHYTHM WITH FREQUENT SUPRAVENTRICULAR PREMATURE COMPLEXES PROBABLE INFERIOR MYOCARDIAL INFARCTION, PROBABLY OLD increased ectopy/rate 08/23/20 Electronically Signed on 08-24-2020 20:49:53 EST by Geni Shelton
== END 2020-08-23 20:50 | disposition home or self-care (01) ==
LOC: M ED 12:16
DX: R07.9 Chest pain, unspecified (principal); I10 Essential (primary) hypertension; E78.5 Hyperlipidemia, unspecified; I25.2 Old myocardial infarction; Z95.5 Presence of coronary angioplasty implant and graft; Z79.899 Other long term (current) drug therapy; Z79.82 Long term (current) use of aspirin

== ENCOUNTER → 2020-10-01 | Outpatient (REF) | payer BC ==
[~2020-10-01] MED LIST changes: +ATOR80TA59 PO; +LISI-898 PO; +METO1TAB87 PO; +NITR0.4S14 SL
[2020-10-01 17:50] LABS: HEMATOCRIT 44.7 % (42.0-52.0); MEAN CORPUSCULAR HGB CONC 31.3 g/dl (32.0-36.5); MEAN CORPUSCULAR VOLUME 89.4 fl (80.0-96.0); PLATELET COUNT, AUTOMATED 213 10^3/uL (150-450)
[2020-10-01 18:21] LABS: ALBUMIN 3.7 GM/DL (3.2-5.2); ALT/SGPT 20 U/L (12-78); BILIRUBIN,TOTAL 0.5 MG/DL (0.2-1.0); BLOOD UREA NITROGEN 15 MG/DL (7-18); CALCIUM LEVEL 8.9 MG/DL (8.8-10.2); CARBON DIOXIDE LEVEL 27 MEQ/L (21-32); CHLORIDE LEVEL 105 MEQ/L (98-107); CREATININE FOR GFR 1.24 MG/DL (0.70-1.30); GLOMERULAR FILTRATION RATE > 60.0 (>42); GLUCOSE, FASTING 67 MG/DL (70-100); POTASSIUM SERUM 4.4 MEQ/L (3.5-5.1); SODIUM LEVEL 138 MEQ/L (136-145); TOTAL PROTEIN 7.3 GM/DL (6.4-8.2)
== END ==
LOC: M LABDRAWC 15:49
PROVIDERS: ATTEND Physician Assistant
DX: I25.10 Atherosclerotic heart disease of native coronary artery without angina pectoris (principal)

== ENCOUNTER → 2020-11-05 | Outpatient (REF) | payer BC ==
[2020-11-05 11:43] LABS: HEMATOCRIT 47.3 % (42.0-52.0); HEMOGLOBIN 14.7 g/dl (13.5-17.5); MEAN CORPUSCULAR HEMOGLOBIN 27.7 pg (27.0-33.0); MEAN CORPUSCULAR HGB CONC 31.1 g/dl (32.0-36.5); MEAN CORPUSCULAR VOLUME 89.1 fl (80.0-96.0); PLATELET COUNT, AUTOMATED 204 10^3/uL (150-450); RED BLOOD COUNT 5.31 10^6/uL (4.30-6.10); WHITE BLOOD COUNT 5.6 10^3/uL (4.0-10.0)
[2020-11-05 12:11] LABS: HEMOGLOBIN A1c 5.4 %
[2020-11-05 12:29] LABS: ALBUMIN 3.4 GM/DL (3.2-5.2); ALT/SGPT 17 U/L (12-78); BILIRUBIN,TOTAL 0.8 MG/DL (0.2-1.0); BLOOD UREA NITROGEN 11 MG/DL (7-18); CALCIUM LEVEL 8.8 MG/DL (8.8-10.2); CARBON DIOXIDE LEVEL 25 MEQ/L (21-32); CHLORIDE LEVEL 106 MEQ/L (98-107); CHOLESTEROL LEVEL 153 MG/DL (<200); CREATININE FOR GFR 1.16 MG/DL (0.70-1.30); GLOMERULAR FILTRATION RATE > 60.0 (>42); GLUCOSE, FASTING 112 MG/DL (70-100); HDL CHOLESTEROL 45 MG/DL (>40); LDL CHOLESTEROL 74 MG/DL (<100); NON-HDL-C 108 MG/DL; POTASSIUM SERUM 4.3 MEQ/L (3.5-5.1); SODIUM LEVEL 140 MEQ/L (136-145); TOTAL 25(OH) VITAMIN D 23.8 NG/ML (30.0-100.0); TOTAL PROTEIN 6.9 GM/DL (6.4-8.2); TRIGLYCERIDES LEVEL 172 MG/DL (<150)
== END ==
LOC: M SFHCCLAY 07:43
PROVIDERS: ATTEND Nurse Practitioner Family
DX: E78.5 Hyperlipidemia, unspecified (principal); Z13.21 Encounter for screening for nutritional disorder; I10 Essential (primary) hypertension; E55.9 Vitamin D deficiency, unspecified; R73.09 Other abnormal glucose

== ENCOUNTER → 2021-10-21 | Outpatient (REF) | payer BC ==
[~2021-10-21] MED LIST changes: -LISI-898 PO; +LISI5TAB11 PO
== END ==
LOC: M SFHCDERM 09:21
PROVIDERS: ATTEND Nurse Practitioner Family
DX: B07.9 Viral wart, unspecified (principal)

== ENCOUNTER → 2022-02-19 | Outpatient (REF) | payer BC ==
[2022-02-19 12:03] LABS: BASO # 0.1 10^3/uL (0.0-0.2); BASO % 1.1 % (0.0-1.0); EOS # 0.4 10^3/uL (0.0-0.5); EOS % 7.1 % (0.0-3.0); HEMOGLOBIN 15.6 g/dl (13.5-17.5); LYMPH # 1.7 10^3/uL (1.5-5.0); LYMPH % 26.9 % (24.0-44.0); MEAN CORPUSCULAR HGB CONC 33.2 g/dl (32.0-36.5); MEAN CORPUSCULAR VOLUME 90.4 fl (80.0-96.0); MONO # 0.7 10^3/uL (0.0-0.8); MONO % 10.8 % (2.0-8.0); NEUTROPHILS # 3.3 10^3/uL (1.5-8.5); NEUTROPHILS % 53.8 % (36.0-66.0); PLATELET COUNT, AUTOMATED 183 10^3/uL (150-450); WHITE BLOOD COUNT 6.2 10^3/uL (4.0-10.0)
[2022-02-19 12:17] LABS: ALBUMIN 3.7 GM/DL (3.2-5.2); ALT/SGPT 22 U/L (12-78); BILIRUBIN,TOTAL 0.9 MG/DL (0.2-1.0); BLOOD UREA NITROGEN 18 MG/DL (7-18); CALCIUM LEVEL 8.8 MG/DL (8.8-10.2); CARBON DIOXIDE LEVEL 29 MEQ/L (21-32); CHLORIDE LEVEL 105 MEQ/L (98-107); CHOLESTEROL LEVEL 192 MG/DL (<200); CHOLESTEROL RISK RATIO 3.368 (<5); CREATININE FOR GFR 1.12 MG/DL (0.70-1.30); GLOMERULAR FILTRATION RATE > 60.0 (>42); GLUCOSE, FASTING 116 MG/DL (70-100); HDL CHOLESTEROL 57 MG/DL (>40); LDL CHOLESTEROL 109 MG/DL (<100); NON-HDL-C 135 MG/DL; POTASSIUM SERUM 4.4 MEQ/L (3.5-5.1); SODIUM LEVEL 137 MEQ/L (136-145); TRIGLYCERIDES LEVEL 132 MG/DL (<150)
== END ==
LOC: M SFHCCLAY 07:46
PROVIDERS: ATTEND Family Medicine
DX: E78.5 Hyperlipidemia, unspecified (principal); I10 Essential (primary) hypertension; Z95.5 Presence of coronary angioplasty implant and graft

== ENCOUNTER → 2022-04-17 | Outpatient (REF) | payer BC ==
[2022-04-17 12:16] LABS: CHOLESTEROL RISK RATIO 2.793 (<5)
== END ==
LOC: M SFHCCLAY 07:39
PROVIDERS: ATTEND Family Medicine
DX: Z95.5 Presence of coronary angioplasty implant and graft (principal)

== ENCOUNTER → 2022-08-29 | Outpatient (REF) | payer BC, MEDICARE ==
[2022-08-29 11:30] LABS: HEMATOCRIT 48.3 % (42.0-52.0); HEMOGLOBIN 15.6 g/dl (13.5-17.5); MEAN CORPUSCULAR HEMOGLOBIN 29.9 pg (27.0-33.0); MEAN CORPUSCULAR HGB CONC 32.3 g/dl (32.0-36.5); MEAN CORPUSCULAR VOLUME 92.7 fl (80.0-96.0); PLATELET COUNT, AUTOMATED 184 10^3/uL (150-450); RED BLOOD COUNT 5.21 10^6/uL (4.30-6.10); WHITE BLOOD COUNT 6.1 10^3/uL (4.0-10.0)
[2022-08-29 11:39] LABS: ALBUMIN 3.6 G/DL (3.2-5.2); ALKALINE PHOSPHATASE 67 U/L (46-116); ALT/SGPT 19 U/L (7.0-40); AST/SGOT 22 U/L (<34); BILIRUBIN,TOTAL 0.9 MG/DL (0.3-1.2); BLOOD UREA NITROGEN 17 MG/DL (9-23); CALCIUM LEVEL 8.8 MG/DL (8.3-10.6); CARBON DIOXIDE LEVEL 29 MMOL/L (20-31); CHLORIDE LEVEL 105 MMOL/L (98-107); CHOLESTEROL LEVEL 148 MG/DL (<200); CREATININE FOR GFR 1.13 MG/DL (0.70-1.30); GLOMERULAR FILTRATION RATE > 60.0 (>42); GLUCOSE, FASTING 116 MG/DL (74-106); HDL CHOLESTEROL 49.2 MG/DL (>40); LDL CHOLESTEROL 72.2 MG/DL (<100); NON-HDL-C 99 MG/DL; POTASSIUM SERUM 4.7 MMOL/L (3.5-5.1); SODIUM LEVEL 138 MMOL/L (136-145); TRIGLYCERIDES LEVEL 133 MG/DL (<150)
== END ==
LOC: M SFHCCLAY 07:45
PROVIDERS: ATTEND Family Medicine
DX: I10 Essential (primary) hypertension (principal); Z95.5 Presence of coronary angioplasty implant and graft

== ENCOUNTER → 2023-08-26 | Outpatient (REF) | payer BC, MEDICARE ==
[2023-08-26 12:27] LABS: BASO # 0.1 10^3/uL (0.0-0.2); BASO % 0.9 % (0.0-1.0); EOS # 0.3 10^3/uL (0.0-0.5); EOS % 5.8 % (0.0-3.0); HEMATOCRIT 46.7 % (42.0-52.0); HEMOGLOBIN 14.7 g/dl (13.5-17.5); LYMPH # 1.5 10^3/uL (1.5-5.0); LYMPH % 25.2 % (24.0-44.0); MEAN CORPUSCULAR HEMOGLOBIN 28.5 pg (27.0-33.0); MEAN CORPUSCULAR HGB CONC 31.5 g/dl (32.0-36.5); MEAN CORPUSCULAR VOLUME 90.7 fl (80.0-96.0); MONO # 0.6 10^3/uL (0.0-0.8); MONO % 9.4 % (2.0-8.0); NEUTROPHILS # 3.4 10^3/uL (1.5-8.5); NEUTROPHILS % 58.5 % (36.0-66.0); PLATELET COUNT, AUTOMATED 201 10^3/uL (150-450); RED BLOOD COUNT 5.15 10^6/uL (4.30-6.10); WHITE BLOOD COUNT 5.9 10^3/uL (4.0-10.0)
[2023-08-26 12:54] LABS: HEMOGLOBIN A1c 5.5 % (4.0-6.0)
[2023-08-26 12:58] LABS: ALBUMIN 3.6 G/DL (3.2-5.2); ALKALINE PHOSPHATASE 70 U/L (46-116); ALT/SGPT 21 U/L (7.0-40); AST/SGOT 19 U/L (<34); BLOOD UREA NITROGEN 14 MG/DL (9-23); CALCIUM LEVEL 8.8 MG/DL (8.3-10.6); CARBON DIOXIDE LEVEL 29 MMOL/L (20-31); CHLORIDE LEVEL 106 MMOL/L (98-107); CHOLESTEROL LEVEL 143 MG/DL (<200); CHOLESTEROL RISK RATIO 3.04 (<5); CREATININE FOR GFR 1.06 MG/DL (0.70-1.30); GLOMERULAR FILTRATION RATE > 60.0 (>42); GLUCOSE, FASTING 117 MG/DL (74-106); LDL CHOLESTEROL 66.2 MG/DL (<100); POTASSIUM SERUM 4.6 MMOL/L (3.5-5.1); SODIUM LEVEL 139 MMOL/L (136-145); TOTAL PROTEIN 6.7 G/DL (5.7-8.2); TRIGLYCERIDES LEVEL 149 MG/DL (<150)
== END ==
LOC: M SFHCCLAY 07:55
PROVIDERS: ATTEND Family Medicine
DX: I10 Essential (primary) hypertension (principal); Z95.5 Presence of coronary angioplasty implant and graft; E78.5 Hyperlipidemia, unspecified; R73.9 Hyperglycemia, unspecified; Z12.11 Encounter for screening for malignant neoplasm of colon

== ENCOUNTER → 2023-11-04 | Outpatient (REF) | payer BC, MEDICARE | LOC: M SFHCCLAY 07:52 | PROVIDERS: ATTEND Family Medicine | DX: R97.20 Elevated prostate specific antigen [PSA] (principal) ==

== ENCOUNTER → 2024-11-09 | Outpatient (CLI) | payer MEDICARE, OTHER ==
[~2024-11-09] MED LIST changes: +EZET10TA21 PO; +PRESCAP4 PO
== END ==
LOC: M ONCR 12:59
PROVIDERS: ATTEND General Practice
DX: C61 Malignant neoplasm of prostate (principal); Z90.79 Acquired absence of other genital organ(s); Z80.6 Family history of leukemia; Z80.8 Family history of malignant neoplasm of other organs or systems; Z79.818 Long term (current) use of other agents affecting estrogen receptors and estrogen levels; Z79.82 Long term (current) use of aspirin; Z79.899 Other long term (current) drug therapy

== ENCOUNTER → 2024-11-30 | Outpatient (RCR) | payer MEDICARE, OTHER | LOC: M ONCR 11-23 10:48 | PROVIDERS: ATTEND General Practice | DX: Z51.0 Encounter for antineoplastic radiation therapy (principal); C61 Malignant neoplasm of prostate ==

== ENCOUNTER → 2025-01-30 | Outpatient (RCR) | payer OTHER, MEDICARE ==
[~2025-01-30] MED LIST changes: +ASPI-226; +B-12100010 PO; +PRED5TA PO; +ZYTI250T PO
== END ==
LOC: M ONCR 01-02 14:17
PROVIDERS: ATTEND General Practice
DX: Z51.0 Encounter for antineoplastic radiation therapy (principal); C61 Malignant neoplasm of prostate

== ENCOUNTER 2025-02-07 14:14 | Outpatient (RCR) | payer OTHER, MEDICARE | END 2025-03-02 | LOC: M ONCR 14:14 | PROVIDERS: ATTEND General Practice | DX: Z51.0 Encounter for antineoplastic radiation therapy (principal); C61 Malignant neoplasm of prostate ==